=== PATIENT | male | born 1950 | race Caucasian/White ===

== ENCOUNTER 2023-01-02 09:55 | Outpatient (AMB) | payer MEDICARE, SELFPAY ==
[2023-01-02 10:02] VITALS: BP 112/78; PULSE 57; O2SAT 96; BMI 24.9
--- NOTE | 2023-01-02 10:02 | A.OFFPC_ITS ---
Vital Signs 01/02/23 10:02 Height 5 ft 8 in Weight 163 lb 8 oz BMI 24.9 BP 112/78 Blood Pressure Location Lt brachial Position Sitting Pulse 57 Pulse Source Pulse Oximeter Pulse Oximetry (%) 96 Oxygen Delivery Method Room Air Intake Visit Reasons: NPV/REQUESTING AWV Intake Note: Patient is here as new patient, and he would like would like to discuss getting a thorough exam soon. He would also like to establish care. Allergies No Known Allergies Allergy (Verified 01/02/23 10:05) Medication List - Last Reconciled 01/02/23 by Norm Foley MD apixaban (Eliquis) 5 mg PO BID lorazepam 0.5 mg PO DAILY PRN metoprolol succinate ER 50 mg PO BID simvastatin 10 mg PO DAILY zolpidem (Ambien) PO PRN Tobacco use date assessed: 01/02/23 Fall risk assessment: No Falls in past year Last assessed Fall Risk: 01/02/23 Dental Screening Dental Screen Date: 01/02/23 Did you have a dental visit in the last 12 months?: Yes Did you have a dental problem in the last 6 months where you did not have access to dental care?: No Was dental information given to patient?: Patient has dentist HPI NPV/REQUESTING AWV HPI Details New patient Prior PCP:? [facility] Darcy Caraballo Last office visit/CPE: Acute issue(s): PMHx: HLD, Depression, Anxiety/Sleep difficulties, a flutter - Cardiology at [facility] SurgHx: L 1st PIP joint in foot, Cardiac ablation, FHx: Mom: Cancer unknown. SocHx: Nonsmoker. EtOH Weekends 1/2 bottle wine & 3 beers. No drugs PFSH Medical History (Updated 01/02/23 @ 10:48 by Abhilash Alexander) Effusion of joint of toe of left foot Atrial flutter Surgical History (Updated 01/02/23 @ 10:10 by Laurie Gil CMA) Hx of appendectomy Social History (Updated 01/02/23 @ 10:13 by Laurie Gil CMA) Household Members: None Housing: House Alcohol intake: current Patient Tobacco Use Status: Never used Tobacco e-Cigarette/Vaping Use: Never Used service: Yes Current occupational status: retired Cognitive needs: No Hearing needs: No Vision needs: No Questionnaire PHQ-9 Over the last 2 weeks, how often have you been bothered by any of the following problems? 1. Little interest or pleasure in doing things: several days 2. Feeling down, depressed, or hopeless: more than half the days 3. Trouble falling or staying asleep, or sleeping too much: nearly every day 4. Feeling tired or having little energy: several days 5. Poor appetite or overeating: not at all 6. Feeling bad about yourself - or that you are a failure or have let yourself or your family down: several days 7. Trouble concentrating on things, such as reading the newspaper or watching television: not at all 8. Moving or speaking so slowly that other people could have noticed. Or the opposite - being so fidgety or restless that you have been moving around a lot more than usual: not at all 9. Thoughts that you would be better off or of hurting yourself in some way: not at all Total score: 8 Source: Developed by Drs. Felipe Rand, Domonique Garland, Tanvir Hughes and colleagues, with an educational natali from [employer]. Thrive Questionnaire Date Thrive assessed: 01/02/23 I am a: Patient What is your living situation today?: I have a steady place to live Within the past 12 months, did the food you bought not last and you didn't have the money to get more?: Never true Within the past 12 months, did you worry whether your food would run out before you got money to buy more?: Never true Do you have trouble paying for medicines?: No Do you have trouble getting transportation to medical appointments?: No Do you have trouble paying your heating and electricity bill?: No Do you have trouble taking care of your child, family member or friend?: No Do you have trouble with day-to-day activities such as bathing, preparing meals, shopping, managing finances, etc.?: No Are you currently unemployed and looking for a job?: No Are you interested in more education?: No AUDIT C Alcohol Use Questionnaire (AUDIT-C) 1. How often do you have a drink containing alcohol?: 2-3 times a week 2. How many drinks containing alcohol do you have on a typical day when you are drinking?: 3 or 4 3. How often do you have six or more drinks on one occasion?: Never Total Score: 4 VASILIY-7 AMB Questionnaire VASILIY-7 Date VASILIY - 7 assessed: 01/02/23 Feeling nervous, anxious, or on edge: 1 = Several days Not being able to stop or control worryin = Several days Worrying too much about different things: 1 = Several days Trouble relaxin = Several days Being so restless that it is hard to sit still: 1 = Several days Becoming easily annoyed or irritable: 1 = Several days Feeling afraid as if something awful might happen: 1 = Several days Total VASILIY-7 score (0-4 normal; 5-9 mild; 10-14 moderate; 15-21 severe): 7 Source: Developed by Drs. Felipe Rand, Domonique Garland, Tanvir Hughes and colleagues, with an educational natali from [employer]. Review of Systems Const Denies chills, Denies fatigue, Denies fever(s), Denies headache(s) and Denies weakness ENT Denies dizziness and Denies headache(s) Card Denies dyspnea Resp Denies cough, Denies dyspnea, Denies wheezing and Denies other (shortness of breath) Musc Denies numbness and Denies tingling Neuro Denies dizziness, Denies headache(s), Denies numbness, Denies tingling and Denies weakness Psych Denies anxiety and Denies depression Endo Denies fatigue Aller/Immun Denies wheezing Physical exam (Primary Care) Vital Signs: Last Vital Signs Pulse 57 01/02/23 10:02 BP 112/78 01/02/23 10:02 Pulse Ox 96 01/02/23 10:02 Oxygen Delivery Method Room Air 01/02/23 10:02 BMI result Body Mass Index 24.9 Tobacco/Smoking Status: Tobacco use Status Tobacco use date assessed 01/02/23 01/02/23 10:19 Patient Tobacco Use Status Never used Tobacco 01/02/23 10:19 e-Cigarette/Vaping Use Never Used 01/02/23 10:19 PHQ-9: PHQ-9 Score PHQ-9: Total score 8 01/02/23 10:23 Thrive Assessment: Date of Thrive Assessment Date Thrive assessed 10/26/23 10/26/23 10:19 Const General: well developed; No acute distress Nutritional Appearance: well nourished Orientation/consciousness: patient oriented x3 HENMT Head: Yes normocephalic and Yes atraumatic Eyes General: appearance normal, both eyes and all related structures Pupils: Equal, round and reactive pupils present EOM: EOMs intact bilaterally Resp Effort & Inspection: normal respiratory effort Neuro General: patient oriented x3 and gait normal Cranial nerves: Yes Equal, round and reactive pupils present Psych Affect: normal affect Office Procedures Flu Questionnaire Does the patient have a severe egg allergy?: No Does the patient have severe life threatening allergies?: No Does the patient have a fever or illness today?: No Has the patient ever had Guillain-[place] Syndrome?: No Has the patient ever had any past reaction to a flu shot?: No Immunizations flu vacc [id number] 6mos up(PF) 60 mcg(15 mcgx4)/0.5 mL IM syringe Performing Provider: Norm Foley MD Performing Location: [facility] [place] Family Medicine Documented (not given) by: Laurie Gil CMA on 01/02/23 10:29 Reason Not Given: Not Given Assessment and Plan Assessment & Plan (1) Paroxysmal atrial flutter: Code(s): I48.92 - Unspecified atrial flutter Plan: Currently?appears?to?have?a?regular?rhythm?and?rate?is?well?controlled. Continue?Eliquis?and metoprolol. Has?upcoming?appointment?with?a[facility] Will?follow?along Will?request?recent?echocardiogram?from?his?[facility]PCP (2) Hyperlipidemia: Code(s): E78.5 - Hyperlipidemia, unspecified Plan: Labs?ordered?and?can?check?lipids?when?he?is?ready (3) Depression with anxiety: Code(s): F41.8 - Other specified anxiety disorders Plan: Currently?taking?lorazepam?for?anxiety.??This?is?prescribed?by?his?[facility] He?says?that?he just??sucks?it?up ?regarding?depression. We?can?address?this?at?a?subsequent?visit (4) Laboratory exam ordered as part of routine general medical examination: Code(s): Z00.00 - Encounter for general adult medical examination without abnormal findings Plan: Labs?ordered Orders: Orders Prostate Specific Antigen Scr Today Z12.5 - Encounter for screening for feliberto gnant neoplasm of prostate Lipid Panel Today Z00.00 - Encounter for general adult medical examination without abnormal findings UA and rflx microscopic Today Z00.00 - Encounter for general adult medical examination without abnormal findings Influenza [id number] Immunization Today Z23 - Encounter for immunization Comprehensive [place]. Panel Fast Today Z00.00 - Encounter for general adult medical examination without abnormal findings Complete Blood Count Auto Diff Today Z00.00 - Encounter for general adult medical examination without abnormal findings Microalbumin, Random (w Creat) Today I10 - Essential (primary) hypertension TSH reflex Free T4 Today Z00.00 - Encounter for general adult medical examination without abnormal findings Coding Level of Care Code New Pt Level 3 (97098) Diagnoses Paroxysmal atrial flutter I48.92 Hyperlipidemia E78.5 Depression with anxiety F41.8 Laboratory exam ordered as part of routine general medical examination Z00.00
== END 2023-01-02 10:53 | disposition home or self-care (01) ==
PROVIDERS: PCP Family Medicine; Visit Provider Family Medicine
DX: I48.92 Unspecified atrial flutter (principal); E78.5 Hyperlipidemia, unspecified; F41.8 Other specified anxiety disorders
CPT/HCPCS: 99203

== ENCOUNTER 2023-03-19 10:57 | Outpatient (AMB) | payer MEDICARE, SELFPAY ==
[2023-03-19 11:13] VITALS: BP 116/62; PULSE 92; O2SAT 96; BMI 25.8
--- NOTE | 2023-03-19 11:13 | MHC.PC.OV ---
Vital Signs 03/19/23 11:13 Height 5 ft 8 in Weight 170 lb BMI 25.8 BP 116/62 Blood Pressure Location Lt brachial Position Sitting Pulse 92 Pulse Source Auscultation Pulse Oximetry (%) 96 Oxygen Delivery Method Room Air Intake Visit Reasons: Extended exam with f/u labs and health maint. Intake Note: Patient is here for 1 year physical. Allergies No Known Allergies Allergy (Verified 01/02/23 10:05) Medication List - Last Reconciled 03/19/23 by Norm Foley MD apixaban (Eliquis) 5 mg PO BID lorazepam 0.5 mg PO DAILY PRN metoprolol succinate ER 50 mg PO BID simvastatin 10 mg PO DAILY zolpidem (Ambien) PO PRN Tobacco use date assessed: 01/02/23 HPI Extended exam with f/u labs and health maint. HPI Details 73 y/o male presents for an extended exam. No recent labs to review. Pt is on lorazepam 0.5mg p.r.n. Pt declines more medications for his depression/anxiety. He reports he has taken zoloft in the past but is concerned about medications subduing him. PHQ-9 score 11 today, VASILIY-7 20. Pt states he goes to the gym 4-5x a week and is active. [facility] Medical History Effusion of joint of toe of left foot Atrial flutter Surgical History Hx of appendectomy Social History Household Members: None Housing: House Alcohol intake: current Patient Tobacco Use Status: Never used Tobacco e-Cigarette/Vaping Use: Never Used service: Yes Current occupational status: retired Cognitive needs: No Hearing needs: No Vision needs: No Questionnaire PHQ-9 Over the last 2 weeks, how often have you been bothered by any of the following problems? 1. Little interest or pleasure in doing things: several days 2. Feeling down, depressed, or hopeless: several days 3. Trouble falling or staying asleep, or sleeping too much: nearly every day 4. Feeling tired or having little energy: nearly every day 5. Poor appetite or overeating: not at all 6. Feeling bad about yourself - or that you are a failure or have let yourself or your family down: several days 7. Trouble concentrating on things, such as reading the newspaper or watching television: not at all 8. Moving or speaking so slowly that other people could have noticed. Or the opposite - being so fidgety or restless that you have been moving around a lot more than usual: more than half the days 9. Thoughts that you would be better off or of hurting yourself in some way: not at all Total score: 11 Depression Screening Interpretation: Positive Depression Screening Follow-up: In treatment and Community Mental Health Worker F/U Depression Screening Done: Yes [id number] - PHQ-9 Billing: Yes Source: Developed by Drs. Felipe Rand, Domonique Garland, Tanvir Hughes and colleagues, with an educational natali from [employer]. Thrive Questionnaire Date Thrive assessed: 01/02/23 VASILIY-7 AMB Questionnaire VASILIY-7 Date VASILIY - 7 assessed: 03/19/23 Feeling nervous, anxious, or on edge: 3 = Nearly every day Not being able to stop or control worryin = More than half the days Worrying too much about different things: 3 = Nearly every day Trouble relaxin = Nearly every day Being so restless that it is hard to sit still: 3 = Nearly every day Becoming easily annoyed or irritable: 3 = Nearly every day Feeling afraid as if something awful might happen: 3 = Nearly every day Total VASILIY-7 score (0-4 normal; 5-9 mild; 10-14 moderate; 15-21 severe): 20 Source: Developed by Drs. Felipe Rand, Domonique Garland, Tanvir Hughes and colleagues, with an educational natali from [employer]. VASILIY-7 Assessment Billing VASILIY-7 Assessment Tool: VASILIY-7 Assessment 61254 Review of Systems Const Denies chills, Denies fatigue, Denies fever(s), Denies headache(s) and Denies weakness Eyes Denies change in vision ENT Denies dizziness, Denies headache(s), Denies hearing loss, Denies nasal congestion, Denies sinus pain, Denies sinus pressure and Denies sore throat Card Denies chest pain, Denies lightheadedness, Denies dyspnea and Denies other (palpitations) Resp Denies cough, Denies dyspnea and Denies wheezing GI Denies abdominal pain, Denies melena, Denies hematochezia, Denies change in bowel habits, Denies dyspepsia and Denies nausea Denies hematuria and Denies dysuria Musc Denies abnormal gait, Denies myalgias, Denies arthralgias, Denies numbness and Denies tingling Skin/Breast Denies rash, Denies unusual bruising and Denies wounds Neuro Denies abnormal gait, Denies dizziness, Denies headache(s), Denies memory loss, Denies numbness, Denies Sensory deficit (Neuro), Denies tingling and Denies weakness Psych Reports anxiety, Reports depression and Denies memory loss Endo Denies cold intolerance, Denies fatigue, Denies heat intolerance, Denies polydipsia and Denies polyuria Pepe/Lymph Denies easy bleeding and Denies easy bruising Aller/Immun Denies wheezing Physical exam (Primary Care) Vital Signs: Last Vital Signs Pulse 103 H 03/19/23 11:13 BP 116/62 03/19/23 11:13 Pulse Ox 96 03/19/23 11:13 Oxygen Delivery Method Room Air 03/19/23 11:13 BMI result Body Mass Index 25.8 Tobacco/Smoking Status: Tobacco use Status Tobacco use date assessed 01/02/23 03/19/23 11:17 Patient Tobacco Use Status Never used Tobacco 03/19/23 11:17 e-Cigarette/Vaping Use Never Used 03/19/23 11:17 Depression Screening Interpretation: Positive Depression Screening Follow-up: In treatment and Community Mental Health Worker F/U Thrive Assessment: Date of Thrive Assessment Date Thrive assessed 01/02/23 03/19/23 11:17 Const General: no acute distress, well developed, alert and awake Nutritional Appearance: well nourished Orientation/consciousness: patient oriented x3 HENMT Head: Yes normocephalic and Yes atraumatic Ears: hearing grossly normal bilaterally and TM's normal bilaterally General nose exam: Normal external nose present and Normal nares present Mouth: Normal oral and palatal mucosa present and moist mucous membranes Teeth and gingiva: dentition normal Throat: Yes posterior oropharynx normal Eyes General: appearance normal, both eyes and all related structures Pupils: Equal, round and reactive pupils present and Pupil accommodation reflex normal EOM: EOMs intact bilaterally Neck Neck: Yes normal visual inspection, Yes no lymphadenopathy and Yes trachea midline Thyroid: Thyroid normal Carotids: no bruits Lymphatic: no lymphadenopathy noted Chest Chest palpation & inspection: normal inspection of the chest Resp Effort & Inspection: normal respiratory effort Auscultation: clear to auscultation bilaterally Cardio Rate: regular rate Rhythm: abnormal rhythm Heart sounds: S1 normal heart sound present, S2 normal heart sound present, no gallops, no murmurs and no rubs Bruits: no abdominal aortic bruits and no carotid bruits GI Palpation (GI): No Abdominal aortic bruit present, Soft to palpation, nontender, No hepatosplenomegaly present and No Rebound tenderness present Auscultation: normal bowel sounds General: Yes no CVA tenderness Back/Spine/Pelvis Back: no CVA tenderness Cervical Spine: cervical ROM normal and No Cervical spine tenderness Thoracic/Lumbar Spine: thoraco-lumbar ROM normal, No pain with thoraco-lumbar ROM, No thoracic spinal tenderness and No lumbar spinal tenderness Skin Lesions: no lesions Rashes: no rashes Trauma: no lacerations or abrasions Wounds: no wounds Nails: normal Neuro General: patient oriented x3 Cranial nerves: Yes Equal, round and reactive pupils present Cognition (Neuro): normal cognition Gait exam (Neuro): Normal gait present Motor exam (neuro): 5/5 motor strength present throughout Sensory Exam: No Sensory deficit (Neuro) Deep tendon reflexes (DTR's): Right patellar reflex intensity grade: 2+ and Left patellar reflex intensity grade: 2+ Extrem General: Yes normal to inspection and No edema Psych Appearance: grossly normal Affect: normal affect Attitude: cooperative Thought process: Normal thought process present Assessment and Plan Assessment & Plan (1) Depression with anxiety: Code(s): F41.8 - Other specified anxiety disorders Plan: Scoring?significantly?high?for?anxiety?and?depression He?is?requesting?referral?to?therapist?and?I?will?ask?the?nurse?navigator?to?connect?him?with?therapy?and?he?can?discuss?a?referral?to?Psychiatry?as?well. Currently?taking?lorazepam?and?last?refill?according?to?[employer]?was?20?tablets?per?30?days.??He?notes?that?he?has?symptoms?of?anxiety?essentially?every?day?and?also?frequent?depression?symptoms?as?well. Spoke?to?patient?and?I?recommend?he?resume?Zoloft?which?he?had?taken?in?the?past.??He?says?he?is?concerned?that?Zoloft?Will??subdue?him?. Had?a?long?conversation?with?patient?regarding?SSRI?medications. He?will?think?about?this. As?above,?patient?will?follow-up?with?a?therapist. No?medication?changes?today. (2) Hyperlipidemia: Code(s): E78.5 - Hyperlipidemia, unspecified Plan: Patient?has?not?had?his?labs?drawn - he?says?he?had?them?drawn?with?his[facility] Will?request?most?recent?labs (3) Paroxysmal atrial flutter: Code(s): I48.92 - Unspecified atrial flutter Plan: Currently?in?irregular?rhythm?but?rate?controlled. Asymptomatic He?is?on?metoprolol?and?apixaban Continue?current?medication?and?follow-up?with?Cardiology?as?recommended (4) Screening for colon cancer: Code(s): Z12.11 - Encounter for screening for malignant neoplasm of colon (5) Screening for prostate cancer: Code(s): Z12.5 - Encounter for screening for malignant neoplasm of prostate Plan: Will?follow-up?on?patient's?labs?and?if?he?has?had?a?PSA?value?within?the?last?year?which?is?within?normal?limits?we?will?continue?to?screen?about?annually. Otherwise?may?need?further?screen (6) Adult general medical exam: Code(s): Z00.00 - Encounter for general adult medical examination without abnormal findings Orders: Referrals Nurse Navigator Referral F41.8 - Other specified anxiety disorders Coding Level of Care Code Est Pt Level 4 (89825) Diagnoses Depression with anxiety F41.8 Hyperlipidemia E78.5 Paroxysmal atrial flutter I48.92 Screening for colon cancer Z12.11 Screening for prostate cancer Z12.5 Adult general medical exam Z00.00 Additional Codes VASILIY-7 Assessment Billing - VASILIY-7 Assessment Tool: VASILIY-7 Assessment 33453 ([id number])
== END 2023-03-19 12:25 | disposition home or self-care (01) ==
PROVIDERS: PCP Family Medicine; Visit Provider Family Medicine
DX: I48.92 Unspecified atrial flutter (principal); F41.8 Other specified anxiety disorders; E78.5 Hyperlipidemia, unspecified; Z12.11 Encounter for screening for malignant neoplasm of colon
CPT/HCPCS: 96127; 99214

== ENCOUNTER 2023-07-09 10:14 | Outpatient (AMB) | payer OTHER, SELFPAY ==
[2023-07-09 10:26] VITALS: BP 100/64; PULSE 93; O2SAT 98; BMI 25.1
--- NOTE | 2023-07-09 10:26 | A.OFFVIS_ITS ---
Vital Signs 07/09/23 10:26 Height 5 ft 8 in Weight 165 lb 5.547 oz BMI 25.1 BP 100/64 Blood Pressure Location Lt brachial Position Sitting Pulse 93 Pulse Source Doppler Pulse Oximetry (%) 98 Oxygen Delivery Method Room Air Intake Visit Reasons: asthma Allergies No Known Allergies Allergy (Verified 01/02/23 10:05) HPI HPI asthma: Details: 73-year-old gentleman, nonsmoker, with underlying AFib on anticoagulation and metoprolol, very active now taking 3-5 hour hikes and hunting referred for evaluation of intermittent episodes of dyspnea on exertion, particularly when going uphill over the last several months. Patient denies wheezing. He did try using albuterol MDI when this episodes happen, however he derive no significant symptomatic benefit. He does have underlying history of asthma for which he has been on Alvesco and albuterol MDI previously with good symptom control. He pop es other personal or family history of lung disease. [facility] Medical History Effusion of joint of toe of left foot Atrial flutter Surgical History Hx of appendectomy Social History (Reviewed 07/09/23 @ 10:34 by Jacklyn Davila COUNT INCLUDES [facility]) Household Members: None Housing: House Alcohol intake: current Patient Tobacco Use Status: Never used Tobacco e-Cigarette/Vaping Use: Never Used service: Yes Current occupational status: retired Cognitive needs: No Hearing needs: No Vision needs: No Review of Systems Const Denies daytime sleepiness, Denies excessive sweating, Denies fatigue, Denies fever(s), Denies lethargy, Denies malaise, Denies night sweats, Denies snoring and Denies weight loss Eyes Denies blurry vision and Denies itchy eyes ENT Denies nasal congestion, Denies post nasal drip, Denies sinus pain, Denies sinus pressure and Denies other ( Thrush) Card Denies chest pain, Denies pedal edema, Denies dyspnea, Denies orthopnea and Denies paroxysmal nocturnal dyspnea Resp Denies cough, Denies hemoptysis, Denies excessive phlegm production, Denies dyspnea, Denies snoring and Denies wheezing GI Denies abdominal pain and Denies heartburn Musc Denies myalgias, Denies arthralgias and Denies joint swelling Skin/Breast Denies rash Neuro Denies memory loss and Denies seizure-like activity Psych Denies abnormal sleep pattern, Denies anxiety and Denies memory loss Endo Denies excessive sweating, Denies fatigue and Denies heat intolerance Pepe/Lymph Denies easy bruising Aller/Immun Denies itchy eyes, Denies seasonal rhinorrhea and Denies wheezing Physical Exam Vital Signs: Last Vital Signs Pulse 93 07/09/23 10:26 BP 100/64 07/09/23 10:26 Pulse Ox 98 07/09/23 10:26 Oxygen Delivery Method Room Air 07/09/23 10:26 BMI result Body Mass Index 25.1 Const General: no acute distress and alert Nutritional Appearance: not obese Orientation/consciousness: Other orientation findings ( oriented) HEENT Head: Yes atraumatic Eyes General: appearance normal, both eyes and all related structures Sclerae: sclerae normal EOM: EOMs intact bilaterally Neck Neck: Yes supple Lymphatic: no lymphadenopathy noted Resp Effort & Inspection: normal respiratory effort and no use of accessory muscles Auscultation: clear to auscultation bilaterally Cardio Rate: regular rate Rhythm: regular rhythm Heart sounds: no gallops, no murmurs and no rubs Skin General skin exam: other ( warm) Extrem General: No clubbing, No cyanosis and No edema Assessment & Plan Assessment & Plan (1) Asthma: Code(s): J45.909 - Unspecified asthma, uncomplicated Category: Medical Plan: Appears to be baseline controlled on Alvesco and albuterol MDI. Will continue on current regimen until results of PFT available. Will obtain full PFT. (2) Dyspnea on exertion: Code(s): R06.09 - Other forms of dyspnea Category: Medical Plan: Unclear etiology at this time, may have cardiac and/or pulmonary component. Patient states that he was following up with cardiology consultant at [facility] with last echocardiogram within last year that was normal. He does have underlying AFib. If PFT is unrevealing, will consider obtaining cardiopulmonary exercise testing. Orders: Orders PFT pulmonary function test Today J45.909 - Unspecified asthma, uncomplicated Coding Level of Care Code New Pt Level 4 (64466) Diagnoses Asthma J45.909 Dyspnea on exertion R06.09
== END 2023-07-09 10:58 | disposition home or self-care (01) ==
PROVIDERS: PCP Family Medicine; Referring Provider Hospitalist; Visit Provider Internal Medicine Pulmonary Disease
DX: J45.909 Unspecified asthma, uncomplicated (principal); R06.09 Other forms of dyspnea
CPT/HCPCS: 99204

== ENCOUNTER → 2023-07-09 10:14 | Outpatient (BNVA) | payer OTHER, SELFPAY | PROVIDERS: PCP Family Medicine; Referring Provider Hospitalist; Visit Provider Internal Medicine Pulmonary Disease | DX: J45.909 Unspecified asthma, uncomplicated (principal); R06.09 Other forms of dyspnea | CPT/HCPCS: 99202 ==

== ENCOUNTER 2023-07-19 10:41 | Outpatient (REF) | payer OTHER, SELFPAY ==
[2023-07-12 10:32] VITALS: PULSE 77; RESP 16; O2SAT 99
--- NOTE | 2023-07-19 11:00 | PFT_ITS ---
Flows: FEV1: 94 % of predicted at 2.73 L FVC: 103 % of predicted at 3.96 L FEV1/FVC: 69 % Bronchodilator response: Absent Volumes: Total lung capacity: 98 % of predicted at 6.53 L Residual volume: 105 % of predicted at 2.57 L Slow vital capacity: 96 % of predicted at 3.96 L Expiratory reserve volume: 71 % of predicted at 0.79 L Diffusion capacity: Normal Impression: Reversible mild obstructive ventilatory defect with no bronchodilator response. MTDD
== END 2023-07-19 10:42 | disposition home or self-care (01) ==
LOC: HO.RESP 10:41
PROVIDERS: Visit Provider Internal Medicine Pulmonary Disease
DX: J45.909 Unspecified asthma, uncomplicated (principal)
CPT/HCPCS: 94010; 94640; 94727; 94729

== ENCOUNTER 2023-08-20 09:12 | Outpatient (AMB) | payer OTHER, SELFPAY ==
[2023-08-20 09:18] VITALS: BP 98/60; PULSE 81; O2SAT 98; BMI 24.3
--- NOTE | 2023-08-20 09:18 | A.OFFVIS_ITS ---
Vital Signs 08/20/23 09:18 Height 5 ft 8 in Weight 159 lb 13.362 oz BMI 24.3 BP 98/60 Blood Pressure Location Rt brachial Position Sitting Pulse 81 Pulse Source Doppler Pulse Oximetry (%) 98 Oxygen Delivery Method Room Air Intake Visit Reasons: Asthma/PFT Follow Up Allergies No Known Allergies Allergy (Verified 08/20/23 09:24) HPI HPI Asthma/PFT Follow Up: Details: 73-year-old gentleman, nonsmoker, with underlying AFib on anticoagulation and metoprolol, very active now taking 3-5 hour hikes and hunting referred for evaluation of intermittent episodes of dyspnea on exertion, particularly when going uphill over the last several months. Patient denies wheezing. He did try using albuterol MDI when this episodes happen, however he derive no significant symptomatic benefit. He does have underlying history of asthma for which he has been on Alvesco and albuterol MDI previously with good symptom control. He denies other personal or family history of lung disease. after the last office visit patient had an essentially normal pulmonary function test. He continues to complain of intermittent dyspnea on exertion. [facility] Medical History Effusion of joint of toe of left foot Atrial flutter Surgical History Hx of appendectomy Social History Household Members: None Housing: House Alcohol intake: current Patient Tobacco Use Status: Never used Tobacco e-Cigarette/Vaping Use: Never Used service: Yes Current occupational status: retired Cognitive needs: No Hearing needs: No Vision needs: No Review of Systems Const Denies daytime sleepiness, Denies excessive sweating, Denies fatigue, Denies fever(s), Denies lethargy, Denies malaise, Denies night sweats, Denies snoring and Denies weight loss Eyes Denies blurry vision and Denies itchy eyes ENT Denies nasal congestion, Denies post nasal drip, Denies sinus pain, Denies sinus pressure and Denies other ( Thrush) Card Denies chest pain, Denies pedal edema, Denies dyspnea, Reports dyspnea on exertion, Denies orthopnea and Denies paroxysmal nocturnal dyspnea Resp Denies cough, Denies hemoptysis, Denies excessive phlegm production, Denies dyspnea, Reports dyspnea on exertion, Denies snoring and Denies wheezing GI Denies abdominal pain and Denies heartburn Musc Denies myalgias, Denies arthralgias and Denies joint swelling Skin/Breast Denies rash Neuro Denies memory loss and Denies seizure-like activity Psych Denies abnormal sleep pattern, Denies anxiety and Denies memory loss Endo Denies excessive sweating, Denies fatigue and Denies heat intolerance Pepe/Lymph Denies easy bruising Aller/Immun Denies itchy eyes, Denies seasonal rhinorrhea and Denies wheezing Physical Exam Vital Signs: Last Vital Signs Pulse 81 08/20/23 09:18 BP 98/60 08/20/23 09:18 Pulse Ox 98 08/20/23 09:18 Oxygen Delivery Method Room Air 08/20/23 09:18 BMI result Body Mass Index 24.3 Const General: no acute distress and alert Nutritional Appearance: not obese Orientation/consciousness: Other orientation findings ( oriented) HEENT Head: Yes atraumatic Eyes General: appearance normal, both eyes and all related structures Sclerae: sclerae normal EOM: EOMs intact bilaterally Neck Neck: Yes supple Lymphatic: no lymphadenopathy noted Cardio Rate: regular rate Rhythm: regular rhythm Heart sounds: no gallops, no murmurs and no rubs Skin General skin exam: other ( warm) Extrem General: No clubbing, No cyanosis and No edema Assessment & Plan Assessment & Plan (1) Dyspnea on exertion: Code(s): R06.09 - Other forms of dyspnea Category: Medical Plan: Unclear etiology with essentially normal workup. Will obtain cardiopulmonary exercise test. (2) Asthma: Code(s): J45.909 - Unspecified asthma, uncomplicated Category: Medical Plan: Well controlled on Alvesco. Continue current regimen. Orders: Orders CA cardiopulmonary stress test Today R06.09 - Other forms of dyspnea Coding Level of Care Code Est Pt Level 4 (02385) Diagnoses Dyspnea on exertion R06.09 Asthma J45.909
== END 2023-08-20 09:41 | disposition home or self-care (01) ==
PROVIDERS: PCP Family Medicine; Visit Provider Internal Medicine Pulmonary Disease
DX: R06.09 Other forms of dyspnea (principal); J45.909 Unspecified asthma, uncomplicated
CPT/HCPCS: 99214

== ENCOUNTER → 2023-08-20 09:12 | Outpatient (BNVA) | payer OTHER, SELFPAY | PROVIDERS: PCP Family Medicine; Visit Provider Internal Medicine Pulmonary Disease | DX: R06.09 Other forms of dyspnea (principal); J45.909 Unspecified asthma, uncomplicated | CPT/HCPCS: 99212 ==

== ENCOUNTER 2023-09-29 09:04 | Outpatient (AMB) | payer OTHER, SELFPAY ==
[2023-09-29 09:07] VITALS: BP 127/82; PULSE 81; O2SAT 97; BMI 24.5
--- NOTE | 2023-09-29 09:07 | MHC.OFFVIS ---
Vital Signs 09/29/23 09:07 Height 5 ft 8 in Weight 160 lb 14.999 oz BMI 24.5 BP 127/82 Blood Pressure Location Rt brachial Position Sitting Pulse 81 Pulse Source Doppler Pulse Oximetry (%) 97 Oxygen Delivery Method Room Air Intake Visit Reasons: Asthma Allergies No Known Allergies Allergy (Verified 09/29/23 09:11) HPI HPI Asthma: Details: 73-year-old gentleman, nonsmoker, with underlying AFib on anticoagulation and metoprolol, very active now taking 3-5 hour hikes and hunting referred for evaluation of intermittent episodes of dyspnea on exertion, particularly when going uphill over the last several months. Patient denies wheezing. He did try using albuterol MDI when this episodes happen, however he derive no significant symptomatic benefit. He does have underlying history of asthma for which he has been on Alvesco and albuterol MDI with good control of her underlying symptoms. After last office visit patient had cardiopulmonary exercise test that showed no pulmonary limitation to exercise, however he does have a cardiovascular limitation based on results of this test. [facility] Medical History Effusion of joint of toe of left foot Atrial flutter Surgical History Hx of appendectomy Social History Household Members: None Housing: House Alcohol intake: current Patient Tobacco Use Status: Never used Tobacco e-Cigarette/Vaping Use: Never Used service: Yes Current occupational status: retired Cognitive needs: No Hearing needs: No Vision needs: No Review of Systems Const Denies daytime sleepiness, Denies excessive sweating, Denies fatigue, Denies fever(s), Denies lethargy, Denies malaise, Denies night sweats, Denies snoring and Denies weight loss Eyes Denies blurry vision and Denies itchy eyes ENT Denies nasal congestion, Denies post nasal drip, Denies sinus pain, Denies sinus pressure and Denies other ( Thrush) Card Denies chest pain, Denies pedal edema, Denies dyspnea, Reports dyspnea on exertion, Denies orthopnea and Denies paroxysmal nocturnal dyspnea Resp Denies cough, Denies hemoptysis, Denies excessive phlegm production, Denies dyspnea, Reports dyspnea on exertion, Denies snoring and Denies wheezing GI Denies abdominal pain and Denies heartburn Musc Denies myalgias, Denies arthralgias and Denies joint swelling Skin/Breast Denies rash Neuro Denies memory loss and Denies seizure-like activity Psych Denies abnormal sleep pattern, Denies anxiety and Denies memory loss Endo Denies excessive sweating, Denies fatigue and Denies heat intolerance Pepe/Lymph Denies easy bruising Aller/Immun Denies itchy eyes, Denies seasonal rhinorrhea and Denies wheezing Physical Exam Vital Signs: Last Vital Signs Pulse 81 09/29/23 09:07 BP 127/82 09/29/23 09:07 Pulse Ox 97 09/29/23 09:07 Oxygen Delivery Method Room Air 09/29/23 09:07 BMI result Body Mass Index 24.5 Const General: no acute distress and alert Nutritional Appearance: not obese Orientation/consciousness: Other orientation findings ( oriented) HEENT Head: Yes atraumatic Eyes General: appearance normal, both eyes and all related structures Sclerae: sclerae normal EOM: EOMs intact bilaterally Neck Neck: Yes supple Lymphatic: no lymphadenopathy noted Resp Effort & Inspection: normal respiratory effort and no use of accessory muscles Auscultation: clear to auscultation bilaterally Cardio Rate: regular rate Rhythm: regular rhythm Heart sounds: no gallops, no murmurs and no rubs Skin General skin exam: other ( warm) Extrem General: No clubbing, No cyanosis and No edema Assessment & Plan Assessment & Plan (1) Asthma: Code(s): J45.909 - Unspecified asthma, uncomplicated Category: Medical Plan: Well controlled on Alvesco and albuterol MDI. Continue current regimen. (2) Dyspnea on exertion: Code(s): R06.09 - Other forms of dyspnea Category: Medical Plan: Results of cardiopulmonary exercise test reviewed. No underlying pulmonary limitation. Does have cardiovascular limitation. Will refer to Cardiology. Orders: Referrals Cardiology Referral R06.09 - Other forms of dyspnea Coding Level of Care Code Est Pt Level 4 (50506) Diagnoses Asthma J45.909 Dyspnea on exertion R06.09
== END 2023-09-29 09:35 | disposition home or self-care (01) ==
PROVIDERS: PCP Family Medicine; Referring Provider Family Medicine; Visit Provider Internal Medicine Pulmonary Disease
DX: J45.909 Unspecified asthma, uncomplicated (principal); R06.09 Other forms of dyspnea
CPT/HCPCS: 99214

== ENCOUNTER → 2023-09-29 09:04 | Outpatient (BNVA) | payer OTHER, SELFPAY | PROVIDERS: PCP Family Medicine; Visit Provider Internal Medicine Pulmonary Disease | DX: J45.909 Unspecified asthma, uncomplicated (principal); R06.09 Other forms of dyspnea | CPT/HCPCS: 99212 ==